=== PATIENT | female | born 1990 | race Hispanic/Latino ===

== ENCOUNTER 2022-12-02 19:01 | Emergency (ER) | payer MEDICAID ==
[~2022-12-02] VITALS: Ht 149.9 cm; Wt 83.9 kg
[2022-12-02] MEDS ORDERED: METOCLOPRAMIDE 10 MG/2 ML VIAL IM ONE (20:30)
[2022-12-02] MEDS ORDERED: DEXAMETHASONE SOD PHOSPHATE 4 MG/ML 1ML VIAL IM SCH (20:30)
[2022-12-02] MEDS ORDERED: ACETAMINOPHEN 500 MG TABLET PO ONE (20:30)
[2022-12-02] MEDS ORDERED: AZIT250T9 PO (20:52)
[2022-12-02] MEDS ORDERED: FLUT16H NASAL (20:52)
[2022-12-02 21:02] VITALS: BP 125/75
== END 2022-12-02 22:13 | disposition home or self-care (01) ==
LOC: EDH 19:01
DX: J01.10 Acute frontal sinusitis, unspecified (principal); G43.909 Migraine, unspecified, not intractable, without status migrainosus; Z79.52 Long term (current) use of systemic steroids
CPT/HCPCS: 99284; 96372 ×2; J1100; J2765

== ENCOUNTER 2023-02-28 10:49 | Emergency (ER) | payer MEDICAID ==
[~2023-02-28] VITALS: Ht 147.3 cm; Wt 81.6 kg
[~2023-02-28 10:49] MED LIST: AZIT250T9 PO; FLUT16H NASAL
[2023-02-28 11:22] LABS: BASOPHILS # (AUTO) 0.07 K/uL (0.00-0.20); BASOPHILS % (AUTO) 0.3 % (0.0-5.0); EOSINOPHILS # (AUTO) 0.02 K/uL (0.00-0.70); EOSINOPHILS % (AUTO) 0.1 % (0.0-8.0); HEMATOCRIT 35.1 % (36-48); LYMPHOCYTES # (AUTO) 1.2 K/uL (1.0-4.8); LYMPHOCYTES % (AUTO) 5.7 % (21.0-51.0); MEAN CORPUSCULAR HEMOGLOBIN 23.1 pg (27.0-33.0); MEAN CORPUSCULAR HGB CONC 30.8 g/dL (32.0-36.0); MEAN CORPUSCULAR VOLUME 75.2 fL (79-99); MONOCYTES % (AUTO) 4.6 % (3.0-13.0); NEUTROPHILS # (AUTO) 18.9 K/uL (1.8-7.7); NEUTROPHILS % (AUTO) 88.8 % (40.0-77.0); PLATELET COUNT (AUTO) 362 K/uL (130-400); RED BLOOD CELL COUNT(AUTO) 4.67 MIL/uL (4.00-5.50); RED CELL DISTRIBUTION WIDTH 16.3 % (11.0-15.5); WHITE BLOOD COUNT (AUTO) 21.2 K/uL (4.8-10.8)
[2023-02-28 11:30] LABS: CREATININE 0.8 mg/dL (0.5-1.5); POTASSIUM 3.6 mmol/L (3.5-5.1)
[2023-02-28] MEDS ORDERED: LACTATED RINGERS 1000ML 1,000 ML IV ONE (11:30)
[2023-02-28] MEDS ORDERED: MORPHINE 4 MG SYG IVP ONE (11:30)
[2023-02-28] MEDS ORDERED: ONDANSETRON 4MG INJ IVP ONE (11:30)
[2023-02-28 11:34] LABS: ALBUMIN 3.6 g/dL (3.5-5.0); BILIRUBIN,TOTAL 0.4 mg/dL (0.2-1.0); TOTAL PROTEIN, SERUM 7.7 g/dL (6.0-8.3)
[2023-02-28 11:58] LABS: APPEARANCE,URINE CLEAR (CLEAR); BILIRUBIN,URINE NEGATIVE (NEGATIVE); GLUCOSE, URINE (UA) NEGATIVE (NEGATIVE); KETONES,URINE NEGATIVE (NEGATIVE); LEUKOCYTE ESTERASE ,URINE NEGATIVE Leu/uL (NEGATIVE); NITRATE,URINE NEGATIVE (NEGATIVE); OCCULT BLOOD,URINE NEGATIVE (NEGATIVE); PH,URINE 5.5 (5.0-8.0); PROTEIN,URINE NEGATIVE (NEGATIVE); UROBILINOGEN,URINE 0.2 mg/dL (0.2-1.0)
[2023-02-28 12:02] LABS: HCG,QUALITATIVE URINE NEGATIVE (NEGATIVE)
[2023-02-28 12:04] LABS: ADD UA MICROSCOPIC YES; COLOR,URINE LIGHT-YELLOW (YELLOW)
[2023-02-28 12:07] LABS: MUCUS,URINE RARE LPF (None Seen); RBC,URINE 0-1 /HPF (0-1); SQUAMOUS EPITHELIAL CELL,UR RARE /HPF (0-2); WBC,URINE 0-1 /HPF (0-1)
[2023-02-28] MEDS ORDERED: IOHEXOL 350 MG/ML 100ML INFUS..BTL IV ONE (15:03)
[2023-02-28 16:57] VITALS: BP 124/88; PULSE 80; RESP 20; O2SAT 99
[2023-02-28] MEDS ORDERED: CEFTRIAXONE 1G VIAL IVPB ONE (17:00)
[2023-02-28] MEDS ORDERED: DOXY100T2 PO (17:01)
[2023-02-28] MEDS ORDERED: IBUP-2070 PO (17:01)
[2023-02-28] MEDS ORDERED: METR-172 PO (17:01)
== END 2023-02-28 18:00 | disposition home or self-care (01) ==
LOC: EDH 10:49
DX: N73.9 Female pelvic inflammatory disease, unspecified (principal); N94.89 Other specified conditions associated with female genital organs and menstrual cycle; R10.30 Lower abdominal pain, unspecified; R11.2 Nausea with vomiting, unspecified
CPT/HCPCS: 99285; 74177; 96365; 76856; 96375; 96361; 80053; 83690; 85025; 87210; 87040 ×2; 83605; 87797; 87486; 81001; 81025; 36415; J7120; J0696; J2405; J2270; Q9967

== ENCOUNTER 2023-04-24 20:16 | Emergency (ER) | payer MEDICAID, OTHER ==
[~2023-04-24] VITALS: Ht 157.5 cm; Wt 81.6 kg
[~2023-04-24 20:16] MED LIST changes: +DOXY100T2 PO; +IBUP-2070 PO; +METR-172 PO
[2023-04-24 21:01] LABS: ADD UA MICROSCOPIC YES; APPEARANCE,URINE CLEAR (CLEAR); BILIRUBIN,URINE NEGATIVE (NEGATIVE); COLOR,URINE LIGHT-YELLOW (YELLOW); GLUCOSE, URINE (UA) NEGATIVE (NEGATIVE); KETONES,URINE NEGATIVE (NEGATIVE); LEUKOCYTE ESTERASE ,URINE 75 Leu/uL (NEGATIVE); NITRATE,URINE NEGATIVE (NEGATIVE); OCCULT BLOOD,URINE NEGATIVE (NEGATIVE); PH,URINE 5.5 (5.0-8.0); PROTEIN,URINE NEGATIVE (NEGATIVE); UROBILINOGEN,URINE 0.2 mg/dL (0.2-1.0)
[2023-04-24 21:03] LABS: HCG,QUALITATIVE URINE NEGATIVE (NEGATIVE)
[2023-04-24 21:05] LABS: BASOPHILS # (AUTO) 0.08 K/uL (0.00-0.20); BASOPHILS % (AUTO) 0.5 % (0.0-5.0); EOSINOPHILS % (AUTO) 1.1 % (0.0-8.0); HEMATOCRIT 34.4 % (36-48); IMMATURE GRANULOCYTE ABSOLUTE 0.08 K/uL (0-1); LYMPHOCYTES # (AUTO) 3.6 K/uL (1.0-4.8); LYMPHOCYTES % (AUTO) 20.5 % (21.0-51.0); MEAN CORPUSCULAR HEMOGLOBIN 24.4 pg (27.0-33.0); MEAN CORPUSCULAR VOLUME 76.3 fL (79-99); MONOCYTES # (AUTO) 0.9 K/uL (0.1-1.0); MONOCYTES % (AUTO) 5.1 % (3.0-13.0); NEUTROPHILS # (AUTO) 12.8 K/uL (1.8-7.7); NEUTROPHILS % (AUTO) 72.3 % (40.0-77.0); PLATELET COUNT (AUTO) 447 K/uL (130-400); RED BLOOD CELL COUNT(AUTO) 4.51 MIL/uL (4.00-5.50); RED CELL DISTRIBUTION WIDTH 15.8 % (11.0-15.5); WHITE BLOOD COUNT (AUTO) 17.7 K/uL (4.8-10.8)
[2023-04-24 21:05] LABS: BACTERIA,URINE RARE /HPF (None Seen); MUCUS,URINE RARE LPF (None Seen); OTHER CASTS, URINE 3 /LPF (None Seen); SQUAMOUS EPITHELIAL CELL,UR MOD /HPF (0-2); YEAST,URINE BUDDING RARE /HPF (None Seen)
[2023-04-24 21:12] LABS: CREATININE 0.8 mg/dL (0.5-1.5); POTASSIUM 3.2 mmol/L (3.5-5.1)
[2023-04-24 21:17] LABS: ALBUMIN 3.9 g/dL (3.5-5.0); BILIRUBIN,TOTAL 0.5 mg/dL (0.2-1.0); TOTAL PROTEIN, SERUM 7.9 g/dL (6.0-8.3)
[2023-04-24] MEDS ORDERED: ONDANSETRON 4MG INJ IVP ONE (21:30)
[2023-04-24] MEDS ORDERED: 0.9%NACL 1000ML 2,000 ML IV ONE (21:30)
[2023-04-24] MEDS ORDERED: HYDROMORPHONE 0.5 MG SYG (0.5MG/0.5ML) IVP ONE (21:30)
[2023-04-24] MEDS ORDERED: IOHEXOL 350 MG/ML 100ML INFUS..BTL IV ONE (22:30)
[2023-04-24] MEDS ORDERED: IBUP-1493 PO (23:45)
[2023-04-25] VITALS: BP 132/74; PULSE 89; RESP 18; O2SAT 99
== END 2023-04-25 00:39 | disposition home or self-care (01) ==
LOC: EDH 20:16
DX: R19.07 Generalized intra-abdominal and pelvic swelling, mass and lump (principal); Z79.899 Other long term (current) drug therapy; Z98.890 Other specified postprocedural states
CPT/HCPCS: 99285; 74177; 96374; 76705; 96361; 96375; 80053; 85025; 87088; 81001; 81025; 36415; J7030; J2405; J1170; Q9967